=== PATIENT | female | born 1940 | race Caucasian/White ===

== ENCOUNTER → 2023-01-24 14:16 | Outpatient (CLI) | payer MEDICARE, OTHER, SELFPAY ==
--- NOTE | 2023-01-24 14:21 | DI.ECHO.S_ITS ---
[place] +---------+ [facility] +---------+ : : [address] : : : : [id number] : : : : Phone: [phone]+ Echocardiogram Report + + :Name: HARDEEP FLORES Study Date: 01/24/2023 Height: 60 in : :[facility] ReadingLocation: Weight: 140 lb : : Gender: Female BSA: 1.6 m2 : :: 1940 Age: 82 yrs BP: 139/82 mmHg: :Reason For Study: ATRIAL FIBRILLATION HR: 65 : :Ordering Physician: ALEXIS REEVES Performed By: KADI JARVIS : :Referring: ALEXIS REEVES : + + Interpretation Summary The ejection fraction is estimated to be 55-60%. Left ventricular wall motion is normal. The left atrium is moderately dilated. There is mild tricuspid regurgitation. The right ventricular systolic pressure is estimated to be at least 33 mmHg based on an estimated right atrial pressure of 3 mm Hg. Procedure: A two-dimensional transthoracic echocardiogram with color flow and Doppler was performed. The study quality was technically adequate. There is no prior echocardiogram noted for this patient. The patient was in normal sinus rhythm during the exam. Left Ventricle: The left ventricle is normal in size. Left ventricular wall thickness is borderline increased. Left ventricular systolic function is normal. The ejection fraction is estimated to be 55-60%. Left ventricular wall motion is normal. Right Ventricle: The right ventricle is normal in size and function. Atria: The left atrium is moderately dilated. Right atrial size is normal. There is no Doppler evidence for an interatrial shunt. Mitral Valve: The mitral valve leaflets are mildly calcified. There is trace mitral regurgitation. Aortic Valve: The aortic valve is trileaflet. The aortic valve opens well. There is no aortic valve stenosis. There is trace aortic regurgitation. Tricuspid Valve: The tricuspid valve is normal. There is mild tricuspid regurgitation. The right ventricular systolic pressure is estimated to be at least 33 mmHg based on an estimated right atrial pressure of 3 mm Hg. Pulmonic Valve: The pulmonic valve leaflets are thin and pliable; valve motion is normal. There is mild pulmonic regurgitation. Great Vessels: The aortic root is normal size. The ascending aorta is normal in size. The IVC is of normal diameter and collapses greater than 50% with a sniff. This suggests a low right atrial pressure of 3 mm Hg. Pericardium/ Pleura There is no pericardial effusion. There is no pleural effusion. MMode/2D Measurements & Calculations LVIDd: 3.8 cm LVOT diam: 1.8 cm LVIDs: 2.6 cm Ao root diam: 2.9 cm FS: 31.2 % asc Aorta Diam: 3.1 cm IVSd: 0.91 cm LVPWd: 1.00 cm LV meza. diameter/BSA (cm/m^2): 2.4 LV sys. diameter/BSA (cm/m^2): 1.6 LA A2 area: 21.8 cm2 RA long axis: 5.0 cm LA A4 area: 22.5 cm2 RA area: 14.5 cm2 LA length (vol): 6.0 cm RA vol: 35.6 ml LA vol: 69.9 ml RA : 22.2 ml/m2 LA vol index: 43.6 ml/m2 TAPSE: 1.8 cm Doppler Measurements & Calculations Ao V2 max: 137.3 cm/sec LVOT Max Remington: 134.9 cm/sec Ao V2 mean: 99.6 cm/sec LV V1 max P.3 mmHg Ao max P.5 mmHg LV V1 VTI: 30.1 cm Ao mean P.4 mmHg FORTINO(I,D): 2.6 cm2 Ao V2 VTI: 29.9 cm FORTINO(V,D): 2.5 cm2 sev ratio: 1.0 FORTINO indexed to BSA (cm^2/m^2): 1.6 MV E max remington: 80.2 cm/sec TR max remington: 264.2 cm/sec MV A max remington: 74.9 cm/sec TR max P.9 mmHg MV E/A: 1.1 PA V2 max: 89.2 cm/sec Med Peak E' Remington: 5.7 cm/sec PA V2 mean: 59.0 cm/sec E/E' med: 14.2 PA mean P.5 mmHg Lat Peak E' Remington: 7.7 cm/sec PA pr(Accel): 44.7 mmHg E/E' lat: 10.4 E/e' average: 12.3 MV dec time: 0.21 sec SVCANDY): 76.9 ml Reading Physician:04:29 PM
== END ==
PROVIDERS: PCP Registered Nurse; Referring Provider Registered Nurse; Visit Provider Registered Nurse
DX: I07.1 Rheumatic tricuspid insufficiency (principal); I37.1 Nonrheumatic pulmonary valve insufficiency; I48.0 Paroxysmal atrial fibrillation
CPT/HCPCS: 93306